=== PATIENT | female | born 1955 | race Caucasian/White ===

== ENCOUNTER → 2018-01-15 14:40 | Outpatient (CLI) | payer OTHER, SELFPAY ==
--- NOTE | 2018-01-15 14:44 | XR_ITS ---
XR DEXA axial skeleton HISTORY: ITS.REASON: POST MENOPAUSAL SCREENING ORDERING PHYSICIAN: Kimberley Rosas PATIENT AGE: 62 years FINDINGS: The BMD measured at the left femoral neck is 0.684 g/cm squared with a T score of -2.5 . This is considered Osteoporotic according to the World Health Organization criteria. Fracture risk is High. Treatment is advised. IMPRESSION: Osteoporosis with high fracture risk. Treatment recommended. Recommend follow-up exam December 2018
--- NOTE | 2018-01-15 14:44 | MM_ITS ---
MM Dig screening mamm BI w/CAD CAD Screening COMPARISON: Digital mammograms 04/08/2016 and 12/03/2011 INDICATION: There is no personal or family history of breast cancer TECHNIQUE: Standard CC and MLO images were obtained. R2 CAD reviewed. FINDINGS: The breasts are composed primarily of fat with scattered fibroglandular densities throughout both breast and the findings are bilateral and symmetrical. There is no suspicious lesion and there are no suspicious microcalcifications. IMPRESSION: Fibrofatty parenchyma with no suspicious lesion seen BI-RADS Category: 1 Negative RECOMMENDED FOLLOW-UP: 1YR - 1 YEAR FOLLOW-UP (A letter has been sent to the patient regarding results of the study.)
== END ==
PROVIDERS: Family Provider Nurse Practitioner; PCP Nurse Practitioner; Visit Provider Nurse Practitioner Family
DX: Z12.31 Encounter for screening mammogram for malignant neoplasm of breast (principal); Z78.0 Asymptomatic menopausal state; Z13.820 Encounter for screening for osteoporosis; Z00.00 Encounter for general adult medical examination without abnormal findings
CPT/HCPCS: 77067; 77080

== ENCOUNTER 2018-04-10 09:45 | Outpatient (CLI) | payer OTHER, SELFPAY ==
[2018-04-10 09:47] VITALS: BMI 31.3
[2018-04-10 10:24] LABS: Calcium 8.7 mg/dL (8.5-10.1); Creatinine Clearance Estimated 81 mL/min (0-300); Creatinine,Serum 0.95 mg/dL (0.55-1.02); Estimated Glomerular Filt Rate 59 ml/min (>60); GFR (African American) 72 ML/MIN (>60)
[2018-04-10 10:25] LABS: Albumin Level 3.4 gm/dL (3.4-5.0)
[2018-04-10 11:05] VITALS: BP 133/72; PULSE 64; RESP 18; O2SAT 97
[2018-04-10 11:20] VITALS: BP 144/85; PULSE 56; RESP 16
== END 2018-04-10 11:25 | disposition home or self-care (01) ==
LOC: INF 09:52
PROVIDERS: Family Provider Nurse Practitioner; PCP Nurse Practitioner; Visit Provider Family Medicine
DX: M81.0 Age-related osteoporosis without current pathological fracture (principal)
CPT/HCPCS: 82040; 82310; 82565; 96374; J3489

== ENCOUNTER → 2019-09-08 10:31 | Outpatient (CLI) | payer MEDICARE, OTHER, SELFPAY ==
--- NOTE | 2019-09-08 10:35 | MM_ITS ---
PROCEDURE: MM DIG SCREENING MAMM BI W/CAD CLINICAL INDICATION: SCREENING There is no personal or family history of breast cancer COMPARISON: [facility] DIGITAL MAMM-SCREEN BILATERAL from 12/03/2011 [facility] DIG MAMM-SCREEN ISABELLA from 04/08/2016 [facility] MM Dig screening mamm BI w/CAD from 01/15/2018 TECHNIQUE: Standard CC and MLO images were obtained. R2 CAD reviewed. FINDINGS: Scattered fibroglandular densities are seen throughout both breasts and the findings of bilateral and symmetrical. There are couple of benign-appearing microcalcifications left breast. There is minimal arterial calcification right breast. There is no new or suspicious lesion in either breast and no suspicious microcalcifications. IMPRESSION: Fibrofatty parenchyma with no suspicious lesions seen BI-RAD Category: 2 Benign Finding(s) FOLLOW-UP: 1YR 1 Year Follow-up (A letter has been sent to the patient regarding results of the study.) Dictated by: Dr. Ramsey Lackey MD 09/10/2019 08:[address] Ramsey Lackey MD in [place] 09/10/2019 08:41
== END ==
PROVIDERS: PCP Nurse Practitioner Family; Visit Provider Nurse Practitioner Family
DX: Z12.31 Encounter for screening mammogram for malignant neoplasm of breast (principal)
CPT/HCPCS: 77067

== ENCOUNTER → 2021-09-25 11:00 | Outpatient (CLI) | payer MEDICARE, OTHER, SELFPAY | PROVIDERS: PCP Nurse Practitioner Family; Visit Provider Nurse Practitioner | DX: U07.1 COVID-19 (principal) | CPT/HCPCS: C9803; U0003; U0005 ==

== ENCOUNTER → 2021-10-01 10:10 | Outpatient (CLI) | payer MEDICARE, OTHER, SELFPAY | PROVIDERS: PCP Nurse Practitioner Family; Visit Provider Nurse Practitioner | DX: Z20.822 Contact with and (suspected) exposure to COVID-19 (principal) | CPT/HCPCS: C9803; U0003; U0005 ==

== ENCOUNTER 2024-06-01 10:13 | Outpatient (CLI) | payer MEDICARE, OTHER, SELFPAY ==
[2024-06-01 10:24] VITALS: BMI 33.6
[2024-06-01 10:45] LABS: Albumin Level 4.3 g/dl (3.5-5.0)
[2024-06-01 10:48] LABS: Calcium 9.2 mg/dl (8.4-10.2); Creatinine Clearance Estimated 81 mL/min (50-200); Estimated Glomerular Filt Rate 55 ml/min (>60); GFR (African American) 66 ML/MIN (>60)
[2024-06-01 11:16] VITALS: BP 148/71; PULSE 66; RESP 18; O2SAT 99
[2024-06-01] MEDS: 0.9 % SODIUM CHLORIDE 50 ML 400 ML IV (11:16)
[2024-06-01] MEDS: ZOLEDRONIC ACID/MANNITOL-WATER 5 MG/100 ML PGGYBK.BTL 400 MG IV (11:16)
[2024-06-01 11:33] VITALS: BP 148/83; PULSE 62; RESP 18
== END 2024-06-01 11:33 | disposition home or self-care (01) ==
LOC: INF 10:16
PROVIDERS: PCP Nurse Practitioner; Visit Provider Nurse Practitioner
DX: M81.0 Age-related osteoporosis without current pathological fracture (principal)
CPT/HCPCS: 82040; 82310; 82565; 96374; J3489

== ENCOUNTER 2024-06-03 10:43 | Outpatient (CLI) | payer MEDICARE, OTHER, SELFPAY ==
--- NOTE | 2024-06-03 10:48 | MM_ITS ---
PROCEDURE INFORMATION: Exam: MG Bilateral Screening 3D Mammography Exam date and time: 06/03/2024 10:40 AM Age: 68 years old Clinical indication: Screening examination TECHNIQUE: Imaging protocol: Bilateral Screening tomosynthesis and 2D mammography including computer-aided detection (CAD) when performed. COMPARISON: 1. MG MM DIG SCREENING MAMM BI W/CAD 09/08/2019 10:53 AM 2. MG [facility] MM Dig screening mamm BI w/CAD 01/15/2018 3:04 PM FINDINGS: MAMMOGRAPHY: Breast composition: The breasts are almost entirely fatty. Mass: None. Architectural distortion: None. Calcifications: No suspicious calcifications. Asymmetric density: None. Skin thickening: None. Axillary adenopathy: None. IMPRESSION: No mammographic evidence of malignancy. Annual screening is recommended unless otherwise clinically indicated. ASSESSMENT: BI-RADS Category 1: Negative.
== END 2024-06-03 23:59 | disposition home or self-care (01) ==
LOC: RAD 10:44
PROVIDERS: PCP Nurse Practitioner; Visit Provider Nurse Practitioner
DX: Z12.31 Encounter for screening mammogram for malignant neoplasm of breast (principal)
CPT/HCPCS: 77063; 77067

== ENCOUNTER 2024-06-04 09:21 | Outpatient (CLI) | payer MEDICARE, OTHER, SELFPAY ==
--- NOTE | 2024-06-04 09:23 | MR_ITS ---
FINAL REPORT CLINICAL HISTORY: INTERNAL DERANGEMENT OF KNEE. knee instability. hx knee surgery 2016 COMPARISON: None FINDINGS: Multiplanar MR imaging of the right knee was performed without contrast. There is presumed prior partial medial meniscectomy. There is abnormal morphology in the posterior horn of the medial meniscus as well as the root of the lateral meniscus, that may represent a tear. Lateral meniscal degeneration is present with a possible small tear of the anterior horn. The anterior cruciate ligament is not seen, and is likely chronically torn. The posterior cruciate ligament is intact. The medial collateral ligament and lateral ligamentous complex are intact. The patellar and quadriceps tendons are intact. There is no evidence of fracture.There is moderate to severe degenerative change in the knee, with severe medial compartment chondromalacia and multiple osteochondral lesions. There are subchondral cysts in the proximal tibia with associated bone marrow edema. There are subchondral cysts present in the proximal tibia with associated bone marrow edema. There is osteonecrosis of the lateral femoral condyle and involving the medial tibial plateau, measuring up to 18 mm. There is a moderate joint effusion is seen, with a small popliteal cyst. The musculature is intact. No soft tissue mass or cyst is identified. IMPRESSION: Presumed partial medial meniscectomy, with abnormal signal in the posterior horn and in the root of the medial meniscus, that may represent a tear. Lateral meniscal degeneration with a probable small tear of the anterior horn. The ACL is not well-seen, likely chronically torn. 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 There is also osteonecrosis of the lateral femoral condyle and the medial tibial plateau, measuring up to 18 mm in diameter. Reviewed, Interpreted and Dictated by Jermaine Ortiz III, MD Transcribed by Maritza Peck Authenticated and [facility]
== END 2024-06-04 23:59 | disposition home or self-care (01) ==
LOC: RAD 09:22
PROVIDERS: PCP Nurse Practitioner; Visit Provider Nurse Practitioner
DX: M23.92 Unspecified internal derangement of left knee (principal)
CPT/HCPCS: 73721

== ENCOUNTER 2024-09-21 10:00 | Outpatient (RCR) | payer MEDICARE, OTHER, SELFPAY | END 2024-09-21 23:59 | disposition home or self-care (01) | LOC: PT 10:00 | PROVIDERS: PCP Nurse Practitioner; Visit Provider Orthopaedic Surgery | DX: M17.12 Unilateral primary osteoarthritis, left knee (principal); Z98.890 Other specified postprocedural states | CPT/HCPCS: 97014; 97110; 97140; 97163; G0283 ==

== ENCOUNTER 2024-10-19 10:00 | Outpatient (RCR) | payer MEDICARE, OTHER, SELFPAY | END 2024-10-19 23:59 | disposition home or self-care (01) | LOC: PT 10:00 | PROVIDERS: PCP Nurse Practitioner; Visit Provider Orthopaedic Surgery | DX: M17.12 Unilateral primary osteoarthritis, left knee (principal) | CPT/HCPCS: 97014; 97016; 97110; 97140; 97530; G0283 ==

== ENCOUNTER 2024-11-18 10:00 | Outpatient (RCR) | payer MEDICARE, OTHER, SELFPAY | END 2024-11-18 23:59 | disposition home or self-care (01) | LOC: PT 10:00 | PROVIDERS: PCP Nurse Practitioner; Visit Provider Orthopaedic Surgery | DX: M17.12 Unilateral primary osteoarthritis, left knee (principal); Z98.890 Other specified postprocedural states | CPT/HCPCS: 97014; 97110; 97530; G0283 ==

== ENCOUNTER 2025-06-14 10:33 | Outpatient (CLI) | payer MEDICARE, OTHER, SELFPAY ==
--- NOTE | 2025-06-14 10:36 | MM_ITS ---
PROCEDURE INFORMATION: Exam: MG Bilateral Screening 3D Mammography Exam date and time: 06/14/2025 10:55 AM Age: 69 years old Clinical indication: Screening examination TECHNIQUE: Imaging protocol: Bilateral Screening tomosynthesis and 2D mammography including computer-aided detection (CAD) when performed. COMPARISON: 1. MG MM DIG SCREENING MAMM BI W/CAD 06/03/2024 10:40 AM 2. MG MM DIG SCREENING MAMM BI W/CAD 09/08/2019 10:53 AM FINDINGS: MAMMOGRAPHY: Breast composition: There are scattered areas of fibroglandular density. Mass: None. Architectural distortion: None. Calcifications: No suspicious calcifications. Asymmetric density: None. Skin thickening: None. Axillary adenopathy: None. IMPRESSION: No mammographic evidence of malignancy. Annual screening is recommended unless otherwise clinically indicated. ASSESSMENT: BI-RADS Category 1: Negative.
--- OUTSIDE RECORDS SUMMARY | 2025-06-14 10:37 | XMS_ITS ---
Author Organization Unknown Allergies, Adverse Reactions and Alerts Date IsAllergic OnsetDate Allergen Reaction Type Severity Elvin rgyCode Legacyallergictoid ReactionCode ReactionCodeSystemID Custom 03/29 00:00 :00 1 sulfa 03/29 00:00 :00 1 penicilli n 07/08 00:00 :00 1 sulfa 07/08 00:00 :00 1 penicilli n 06/30 00:00 :00 1 sulfa 06/30 00:00 :00 1 penicilli n 05/19 00:00 :00 1 sulfa 05/19 00:00 :00 1 penicilli n 05/19 00:00 :00 1 sulfa 05/19 00:00 :00 1 penicilli n 05/18 00:00 :00 1 sulfa 05/18 00:00 :00 1 penicilli n
--- OUTSIDE RECORDS SUMMARY | 2025-06-14 10:37 | XMS_ITS | Clinical Summary ---
[facility] Organization [facility] Address [address] [place] [address] Care Team Providers Care Web Project Manager Name Role Phone Evi Luevano APRN Primary Care Provider [phone] Allergies Active Allergy Reactions Criticality Noted Date Comments Penicillins Anaphylaxis High 02/24/2018 Patient tolerates amoxicillin Sulfisoxazole Hives Medium 02/24/2018 Medications acetaminophen (TYLENOL) 500 MG tablet Take 2 tablets by mouth Every 8 (Eight) Hours. 42 tablet Active Additional Information Patient not taking.Reported on 12/17/2024 Active Problems Problem Noted Date Diagnosed Date Arthritis of knee 09/08/2024 Status post total left knee replacement 09/08/20 24 Resolved Problems Problem Noted Date Diagnosed Date Resolved Date Arthritis of knee 07/16/2024 09/08/2024 Primary osteoarthritis of left knee 07/16/2024 09/08/2024 Social History Tobacco Use Types Packs/Day Years Used Date Smoking Tobacco: Never Passive Smoke Exposure: Never Smokeless Tobacco: Never Tobacco Cessation:Counseling Given: No Alcohol Use Standard Drinks/Week Comments Yes 0 (1 standard drink = 0.6 oz pur e alcohol) rarely Abuse Screen Answer Date Recorded Feels Unsafe at Home or Work/School no 09/08/2024 Feels Threatened by Someone no 08/22 Does Anyone Try to Keep You From Having Contact with Others or Doing Things Outside Your Home? no 09/08/2024 Physical Signs of Abuse Present no 09/08/2024 Education Answer Date Recorded Help with school or training? Not on file Preferred Language Belarusian 08/25/2024 Comments No Sex and Gender Information Value Date Recorded Sex Assigned at Not on file Legal Sex Female 10:41 AM EDT Gender Identity Not on file Sexual Orientation Not on file Last Filed Vital Signs Vital Sign Reading Time Taken Comments Blood Pressure 136/86 12/17/2024 10:57 AM EDT Pulse 73 09/08/2024 11:10 AM EST Temperature 36.1 C (96.9 F) 09/30/2024 10:21 AM EST Respiratory Rate 16 09/08/2024 11:10 AM EST Oxygen Saturation 97% 09/08/2024 11:10 AM EST Inhaled Oxygen Concentration - - Weight 95.7 kg (211 lb) 12/17/2024 10:57 AM EDT Height 165.1 cm (5' 5 ) 12/17/2024 10:57 AM EDT Body Mass Index 35.11 12/17/2024 10:57 AM EDT Plan of Treatment Upcoming Encounters Date Type Department Care Team (Late st Contact Info) Description 09/09/2025 11:00 AM EST Office Visit [facility] [address] [place] [address] Daniel Witt MD [address] [address] Health Maintenance Due Date Last Done Comments DXA SCAN 1953 MAMMOGRAM 1993 COLOGUARD 1998 COLON CANCER SCREENING 5 YEA R SIGMOIDOSCOPY 1998 COLONOSCOPY 1998 [address] CANCER SCREENING 1998 CT COLONOGRAPHY 1998 FECAL OCCULT BLOOD TEST 1998 FIT Testing (1 year) 1998 Pneumococcal Vaccine 50+ (1 of 1 - PCV) 2003 ZOSTER VACCINE (1 of 2) 2003 TDAP/TD VACCINES (3 - Td or Tdap) 07/01/2022 012, 11/26/1996 ANNUAL WELLNESS VISIT 07/16/2024 HEPATITIS C SCREENING 07/16/2024 INFLUENZA VACCINE 04/22/2025 COVID-19 Vaccine ( - season) 2025 09/12/2021, 02/28/2021, 02/07/2021 Medical Devices Implanted Type Area Expansion Envelope Maker Hand Device Identifier Shelf Expiration Date Model / Serial / Lot Dev Contrl Tiss Stratafix Spiral Pdo Bidir 1 [id number] - [id number] Implanted:Qty : 1 on 09/08/2024 by Daniel Witt MD at [facility] Implant Left: Knee [employer] J 03/21/2026 [id number] / / [id number] Comp Fem Triath Cr Cmtls Sz4 Lt - [id number] Implanted:Qty : 1 on 09/08/2024 by Daniel Witt MD at [facility] Implant Left: Knee RODOLFO NEO [id number] 06/21/2029 [id number] / / [id number] Insrt Tib/Kn Triathlon Condy/Stbl X3 Sz4 10mm - [id number] Implanted:Qty : 1 on 09/08/2024 by Daniel Witt MD at [facility] Implant Left: Knee R[employer] NEO [id number] 03/29/2029 [id number] / / [id number] Baseplt Tib Triath Tritanium Sz4 - [id number] Implanted:Qty : 1 on 09/08/2024 by Daniel Witt MD at [facility] Implant Left: Knee RODOLFO NEO [id number] 03/12/2029 [id number] / / [id number] Pat Triath Tritanium [id number] - [id number] Implanted:Qty : 1 on 09/08/2024 by Daniel Witt MD at [facility] Implant Left: Knee RODOLFO NEO [id number] 06/04/2029 [id number] / / [id number] [place] Knee Triathlon Tritanium W/X3 - [id number] Implanted:Qty : 1 on 09/08/2024 by Daniel Witt MD at [facility] Implant Left: Knee RODOLFO NEO CAPSTRYKE RKNTRIATH LONTRITAN [id number] / / Insurance MEDICARE A & B [employer] [facility] Advance Directives * CPR (Attempt to Resuscitate) (Latest Code Status on File) Date Activated Date Inactivated Comments 09/08/2024 11:15 AM 09/08/2024 6:07 PM Question Answer Comments Code Status (Patient has no pulse and is not breathing): CPR (Attempt to Resuscitate) Medical Interventions (Patie nt has pulse or is breathing): Full Support Care Teams Web Project Manager Relationship Specialty Start Date End Date Evi Luevano APRN [address] [place] [id number] PCP - General Nurse Practitioner 07/12/24
== END 2025-06-14 23:59 | disposition home or self-care (01) ==
LOC: RAD 10:35
PROVIDERS: PCP Nurse Practitioner; Visit Provider Nurse Practitioner
DX: Z12.31 Encounter for screening mammogram for malignant neoplasm of breast (principal); R92.323 Mammographic fibroglandular density, bilateral breasts
CPT/HCPCS: 77063; 77067